=== PATIENT | male | born 1955 | race Caucasian/White ===

== ENCOUNTER 2021-03-20 19:10 | Emergency (ER) | payer MEDICARE, OTHER ==
[2021-03-20] MEDS ORDERED: Ketorolac 30 MG/ML SDV IM ONE (19:31)
[2021-03-20] MEDS ORDERED: Cyclobenzaprine 10 MG Tab PO ONE (19:32)
--- NOTE | 2021-03-20 19:46 | EDM.PDOC ---
ED HPI GENERAL MEDICAL PROBLEM - General Chief Complaint: Back Pain or Injury Stated Complaint: BACK PAIN Time Seen by Provider: 03/20/21 19:20 Source of Information: Reports: Patient History Limitations: Reports: No Limitations - History of Present Illness INITIAL COMMENTS - FREE TEXT/NARRATIVE: c/o low back pain lifting water and twisted to left, had pain at left lower back, has had pain in past, no radiation, took ibuprofen 200 mg 2 tabs at 4p which helped a little Treatments [employer]: Reports: NSAIDS Lower back pain, R>L Pain Score (Numeric/FACES): 8 - Related Data Allergies Allergy/AdvReac Type Severity Reaction Status Date / Time No Known Allergies Allergy Verified 03/20/21 19:24 Home Meds: Home Meds Aspirin [Connie Chewable] 81 mg PO MOWEFR 03/20/21 [History] Cyclobenzaprine HCl 5 mg PO QID #28 tablet 03/20/21 [Rx] Verapamil [Calan SR] 120 mg DAILY 03/20/21 [History] atenoloL [Atenolol] 50 mg PO BID 03/20/21 [History] ED ROS GENERAL - Review of Systems Review Of Systems: See Below Constitutional: Reports: No Symptoms HEENT: Reports: No Symptoms Respiratory: Reports: No Symptoms Cardiovascular: Reports: No Symptoms Endocrine: Reports: No Symptoms GI/Abdominal: Reports: No Symptoms : Reports: No Symptoms Musculoskeletal: Reports: Back Pain Skin: Reports: No Symptoms Neurological: Reports: No Symptoms Psychiatric: Reports: No Symptoms Hematologic/Lymphatic: Reports: No Symptoms Immunologic: Reports: No Symptoms ED EXAM,LOWER BACK PAIN/INJURY - Physical Exam Exam: See Below Exam Limited By: No Limitations General Appearance: Alert, WD/WN, No Apparent Distress Nose: Normal Inspection, Normal Mucosa, No Blood Throat/Mouth: Normal Inspection, Normal Lips, Normal Voice, No Airway Compromise Head: Atraumatic, Normocephalic Neck: Normal Inspection, Supple, Non-Tender, Full Range of Motion Respiratory/Chest: No Respiratory Distress, Lungs Clear, Normal Breath Sounds, Chest Non-Tender GI/Abdominal: Soft, Non-Tender, No Distention Back Exam: Other (no spasm, 1+ tender at L iliac crest, nontender at l-spine and LS joint). No: CVA Tenderness (R), CVA Tenderness (L) Extremities: Normal Inspection, Non-Tender, No Pedal Edema Neurological: Alert, Normal Mood/Affect, Normal Dorsiflexion, CN II-XII Intact, Normal Gait, No Motor/Sensory Deficits, Oriented x 3, Other (sits stiffly, leans forward slightly in chair, walks with a straight back) Psychiatric: Normal Affect, Normal Mood Skin Exam: Warm, Dry, Intact, Normal Color, No Rash Lymphatic: No Adenopathy Course - Vital Signs Last Recorded V/S: Last Vital Signs Temp 36.5 C 03/20/21 19:20 Pulse 59 L 03/20/21 19:20 Resp 18 03/20/21 19:20 BP 193/103 H 03/20/21 19:20 Pulse Ox 98 03/20/21 19:20 - Orders/Labs/Meds Orders: Active Orders 24 hr Category Date Time Status Lumbar Spine 2 or 3V [CR] Stat Exams 03/20/21 19:32 Ordered Meds: Medications Discontinued Medications Generic Name Dose Route Start Last Admin Trade Name Lupilloq PRN Reason Stop Dose Admin Acetaminophen 1,000 mg 03/20/21 19:32 03/20/21 20:04 Acetaminophen 500 Mg Tab PO 03/20/21 19:33 Not Given ONETIME ONE Cyclobenzaprine HCl 10 mg 03/20/21 19:32 03/20/21 20:00 Cyclobenzaprine 10 Mg Tab PO 03/20/21 19:33 10 mg ONETIME ONE Administration Ketorolac Tromethamine 30 mg 03/20/21 19:31 03/20/21 19:59 Ketorolac 30 Mg/Ml Sdv IM 03/20/21 19:32 30 mg ONETIME ONE Administration - Re-Assessments/Exams Free Text/Narrative Re-Assessment/Exam: 03/20/21 20:25 on prelim ED read of LS spine there is moderate DJD with bridging at 2 joints, disc spaces appear preserved, mild rotational scoliosis of upper L-spine no baseline labs has used ibuprofen in past, felt much better after Toradol 30 mg IM and cyclobenzaprine 5 mg PO declined APAP here, 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, lifting pails of water at home hx/PE/imaging c/w sprain with underlying moderate DJD PCP is Dr Mata in [place] preferred pharmacy is [facility] on [facility] Departure - Departure Time of Disposition: 20:16 Disposition: Home, Self-Care 01 Condition: Good Clinical Impression: Low back sprain, Degenerative joint disease (DJD) of lumbar spine - Discharge Information *PRESCRIPTION DRUG MONITORING PROGRAM REVIEWED*: Not Applicable *COPY OF PRESCRIPTION DRUG MONITORING REPORT IN PATIENT PAULA: Not Applicable Prescriptions: Cyclobenzaprine HCl 5 mg PO QID #28 tablet Instructions: Lumbar Sprain, Back Injury Prevention, Osteoarthritis Forms: ED Department Discharge Additional Instructions: For pain and inflammation, take ibuprofen 200 mg 2 tabs 4 times a day for 7 days. For spasm, take cyclobenzaprine 5 mg 1 tab 4 times a day for 7 days. For pain and sleep, take diphenhydramine 25 mg 2 tabs at bedtime as needed. Use ice for 10 minutes every 2 hours for 2 days. Sleep on a firm mattress. Avoid bending and twisting and lifting. See Dr Mata in 2-3 days for further recommendations. Sepsis Event Note (ED) - Evaluation Sepsis Screening Result: No Definite Risk - Focused Exam Vital Signs: Vital Signs Temp Pulse Resp BP Pulse Ox 03/20/21 19:20 36.5 C 59 L 18 193/103 H 98 - My Orders Last 24 Hours: My Active Orders 03/20/21 19:32 Lumbar Spine 2 or 3V [CR] Stat - Assessment/Plan Last 24 Hours: My Active Orders 03/20/21 19:32 Lumbar Spine 2 or 3V [CR] Stat
[2021-03-20] MEDS: Acetaminophen 500 MG Tab PO ONE ×2 (20:00→20:04)
--- NOTE | 2021-03-21 11:43 | CR ---
LUMBAR SPINE THREE VIEWS INDICATION: Low back pain to the left of midline. No history of trauma. FINDINGS: Three views of the lumbosacral spine were obtained 03/21/21 - no comparisons. Bridging hyperostotic changes are noted at T12-L1 on the left, L2-3 on the right and L4-5 on the right, as well as to a lesser degree anteriorly off all vertebral bodies in the lumbosacral spine and lower thoracic spine visualized. Degenerative disc disease is suggested with some narrowing of the disc spaces at L3-4, L4-5 and L5-S1 with vacuum disc phenomenon at L4-5 and L%-S1. Vertebral body heights were well maintained. A very minimal dextroconvex scoliosis with rotatory component is noted at the mid lumbar spine. Degenerative changes of a mild degree are noted at the sacroiliac joints. Calcifications are noted in the distal abdominal aorta and iliac arteries. IMPRESSION: Osteoarthritis with spondylosis and degenerative disc disease, as noted above. MTDD
== END 2021-03-20 20:33 | disposition home or self-care (01) ==
LOC: FB.ED 19:10
DX: S33.5XXA Sprain of ligaments of lumbar spine, initial encounter (principal); M47.896 Other spondylosis, lumbar region; Z79.82 Long term (current) use of aspirin; Z79.899 Other long term (current) drug therapy; X58.XXXA Exposure to other specified factors, initial encounter
CPT/HCPCS: 72100; 96372; 99283-25; A9270-GY; J1885